=== PATIENT | female | born 1945 | race Caucasian/White ===

== ENCOUNTER 2017-11-08 08:28 | Emergency (ER) | payer OTHER, MEDICARE ==
--- NOTE | 2017-11-08 08:58 | ED Physician Documentation ---
History of Present Illness - Stated complaint Stated Complaint: R FOOT/ANKLE PX - Chief complaint Chief Complaint: Ext Problem - Additonal information Additional information: hx from pt foot fell asleep while sitting with her dog rolled R ankle was able to bear weight yesterday but today more painful swollen and bruised no other injury Review of Systems Musculoskeletal: reports: Pain with weight bearing PD PAST MEDICAL HISTORY - Past Medical History Cardiovascular: Hypertension, High cholesterol - Past Surgical History Past Surgical History: Yes General: Cholecystectomy, Appendectomy Ortho: Other /NON LINEAR EDITOR: Dilation and currettage, Other HEENT: Tonsil/Adenoidectomy - Present Medications Home Medications: Ambulatory Orders Medication Instructions Recorded Confirmed Aspirin 81 mg PO DAILY 01/08/15 06/22/16 Atenolol 25 mg PO DAILY 01/08/15 06/22/16 Ezetimibe/Simvastatin [Vytorin 1 tab PO DAILY 01/08/15 06/22/16 10-40 mg Tablet] Lisinopril 10 mg PO DAILY 01/08/15 06/22/16 - Allergies Allergies/Adverse Reactions: Allergies Allergy/AdvReac Type Severity Reaction Status Date / Time rosuvastatin calcium * Allergy Cramps Verified 11/08/17 08:41 [From Crestor] - Social History Does the pt smoke?: Yes Smoking Status: Current every day smoker Does the pt drink ETOH?: No Does the pt have substance abuse?: No - Immunizations Immunizations are current?: Yes PD ED PE NORMAL - Vitals Vital signs reviewed: Yes - Extremities Extremities: Other (R ankle rj swelling and ecchymosis, TTP rj mall and ST around mall, no laxity, no prox tib fib pain, no 5th MT or other foot TTP, + pedal pulse, MSV intact) Results - Vitals Vitals: Vital Signs - 24 hr 11/08/17 08:37 Temperature 36.3 C L Heart Rate 79 Respiratory 18 Rate Blood Pressure 134/98 H O2 Saturation 96 Oxygen O2 Source Room air - Rads (name of study) ankle Radiology: See rad report (no fx or dislocation) PD MEDICAL DECISION MAKING - ED course ED course: long wait for rad read pt declined pain meds Departure - Departure Disposition: 01 Home, Self Care Clinical Impression: Ankle sprain Qualifiers: Encounter type: initial encounter Involved ligament of ankle: unspecified ligament Laterality: right Qualified Code(s): S93.401A - Sprain of unspecified ligament of right ankle, initial encounter Condition: Good Instructions: ED Sprain Ankle W X Ray Follow-Up: Tamy Kingston MD [Primary Care Provider] - Comments: The radiologist has read the xray and there is no fracture or dislocation though you do have an unusually prominent bone in the medial part of the foot. So it is OK for you to go home Recommend an LULU wrap ice and elevation to decrease the swelling Tylenol as needed for the pain Use your crutches as needed to relieve the weight bearing stress on your ankle If still too painful to walk normally in two weeks, please follow up with your PMD for a recheck and consideration of further imaging
--- NOTE | 2017-11-08 11:00 | XRAY Preliminary Report ---
Exam: XR ANKLE 3 VIEW RT IMPRESSION: No fracture or malalignment. [facility] SITE ID: [id number]
--- NOTE | 2017-11-08 11:01 | XRAY Report ---
EXAM: RIGHT ANKLE RADIOGRAPHY EXAM DATE: 11/08/2017 08:57 AM. CLINICAL HISTORY: Injury. Twisting injury. COMPARISON: None. TECHNIQUE: 3 views. FINDINGS: Bones: Normal. No fractures or bone lesions. Joints: Minimal ankle joint effusion. No subluxations. The ankle mortise is normally aligned. Soft Tissues: Moderate lateral ankle soft tissue swelling. IMPRESSION: No fracture or malalignment. [facility] Referring Provider Line: [phone] SITE ID: [id number]
[2017-11-08 11:36] VITALS: BP 130/88
== END 2017-11-08 11:43 | disposition home or self-care (01) ==
LOC: ED 08:28
DX: S93.401A Sprain of unspecified ligament of right ankle, initial encounter (principal); X50.9XXA Other and unspecified overexertion or strenuous movements or postures, initial encounter; Y93.84 Activity, sleeping; I10 Essential (primary) hypertension; E78.00 Pure hypercholesterolemia, unspecified; F17.200 Nicotine dependence, unspecified, uncomplicated; Z79.82 Long term (current) use of aspirin
CPT/HCPCS: 99283

== ENCOUNTER 2021-03-04 13:46 | Outpatient (CLI) | payer MEDICARE, OTHER | END 2021-03-04 13:47 | disposition home or self-care (01) | LOC: COV 13:46 | PROVIDERS: ATTEND Family Medicine | DX: Z01.812 Encounter for preprocedural laboratory examination (principal); Z20.822 Contact with and (suspected) exposure to COVID-19 ==

== ENCOUNTER 2021-03-23 13:53 | Outpatient (CLI) | payer MEDICARE, OTHER | END 2021-03-23 13:54 | disposition home or self-care (01) | LOC: COV 13:53 | PROVIDERS: ATTEND Ophthalmology | DX: Z01.812 Encounter for preprocedural laboratory examination (principal); Z20.822 Contact with and (suspected) exposure to COVID-19 ==